=== PATIENT | female | born 1960 | race Caucasian/White ===

== ENCOUNTER 2023-02-09 20:48 | Emergency (ER) | payer BC, SELFPAY ==
[2023-02-09 20:50] VITALS: BP 141/83; PULSE 96; RESP 18; TEMP 35.8; O2SAT 99
[2023-02-09 21:10] LABS: Absolute Neutrophil Count 5.3 X10^3/uL (2.0-7.7); Basophil# 0.05 X10^3/uL; Basophil% 0.5 % (0-1); Eosinophil# 0.21 X10^3/uL; Eosinophils% 2.1 % (0-5); Hematocrit 40.4 % (37-47); Hemoglobin 13.1 g/dL (12.0-15.0); Mean Corp Hgb Conc 32.4 g/dL (32-36); Mean Corpuscular Hgb 29.6 pg (27.0-32.0); Mean Corpuscular Volume 91.4 fL (81-99); Mean Platelet Vol. 10.5 fl (6.2-12.0); NRBC Flagged by Analyzer 0 % (0-5); Neutrophil # 5.31 X10^3/uL (2.7-7.7); Neutrophil % 53.1 % (47-70); Platelet Count 307 K/mm3 (150-450); RBC Distribution Width CV 13.7 % (11.6-14.6); RBC Distribution Width SD 46.4 fl (35.1-43.9); Red Blood Count 4.42 M/mm3 (4.2-5.4)
[2023-02-09 21:31] LABS: Anion Gap 6 (5-15); BUN 13 mg/dL (7-18); BUN/Creat Ratio 14.1 RATIO (10-20); Calcium,Total 9.1 mg/dL (8.5-10.1); Chloride 101 mmol/L (98-107); Creatinine, Serum 0.92 mg/dL (0.55-1.02); EST Glomerular Filtration Rate 66 mL/min (>60); Est Glom Filt Rate - Afr Amer 79 mL/min (>60); Glucose 122 mg/dL (74-106); Potassium 3.1 mmol/L (3.5-5.1); Sodium Level 137 mmol/L (136-145); Troponin-I HS (w/2H Reflex) 4 pg/mL (3.0-54.0)
--- NOTE | 2023-02-09 21:35 | RAD_ITS ---
EXAM: XR CHEST, 1 VIEW CLINICAL INDICATION: chest pain TECHNIQUE: Frontal view of the chest. COMPARISON: No relevant prior studies available. FINDINGS: LUNGS AND PLEURAL SPACES: Unremarkable. No consolidation or edema. No pneumothorax. No effusion. HEART: Unremarkable. Cardiac silhouette not enlarged. MEDIASTINUM: Central airways and mediastinal contour are unremarkable. BONES/JOINTS: Unremarkable. SOFT TISSUES: Unremarkable. RAD/Chest 1 View (Portable) IMPRESSION: No radiographic evidence of acute cardiopulmonary disease. Electronically Signed: Minesh Foster MD at 21:56 EDT ,
[2023-02-09] MEDS: Aspirin 81 MG TAB.CHEW 324 MG PO (21:46)
[2023-02-09 22:09] LABS: D-Dimer Quantitative (DVT/PE) 0.35 FEU/ug/m (0.27-0.49)
[2023-02-09 23:08] LABS: Reflex Troponin-HS? (from REC) Y
[2023-02-09 23:15] VITALS: BP 129/80; PULSE 83; RESP 15; O2SAT 98
[2023-02-09] MEDS: Ondansetron 4 MG/2 ML Vial IV (23:28)
[2023-02-09] MEDS: 0.9% Normal Saline 1,000 ML 999 ML IV (23:29)
[2023-02-09 23:40] LABS: Troponin-I HS 4 pg/mL (3.0-54.0)
--- NOTE | 2023-02-10 00:12 | EDS_ITS ---
HPI History of Present Illness Chief Complaint: Chest Pain Informant: patient Narrative Narrative: Patient presents with chest heaviness, mild nausea, radiation toward the left shoulder, nonspecific dizziness and some mild shortness of breath. She states she did have a history of [place] and had a stent placed about 4 or 5 years ago. She had been doing well. In August of this year she got COVID. About 2 weeks after that she started getting the symptoms. She has had them multiple times. She has seen her screening unit registered nurse multiple times she is seeing other specialist. She has been to the emergency department she tells me 16 times for this. Every single time she is evaluated including with CT scans of the chest echo etc. everything is negative. She states she has had every test there is. Nobody can sort out why she is having the symptoms. These are the same as her normal. She is on her meds including beta-omar, aspirin, pantoprazole, lisinopril. She is no longer on Plavix but had been on that for a while after stents. [facility] Medical History HTN (hypertension) Past heart attack Home Medications ondansetron 4 mg disintegrating tablet 4 mg PO Q8H PRN PRN Nausea #10 tabs 02/10/23 [Rx Last Taken Unknown] Allergy/AdvReac Type Severity Reaction Status Date / Time codeine Allergy Intermediate nausea Verified 02/09/23 20:49 Surgical History Stented coronary artery Social History Smoking Status: Current every day smoker tobacco type: cigarettes ROS ROS ED ROS Narrative A complete review of systems was performed and is negative except as documented in the history of present illness. Some specific details below. Constitutional: No recent fevers or chills. EYE: No discharge, visual complaints, or pain. ENT: No difficulty swallowing. No swelling. No pain. No reflux symptoms. She does have a history of reflux but it sounds like she is on meds for this CV: See history of present illness. Respiratory: See history of present illness. GI: No abdominal pain. No nausea vomiting diarrhea. No blood in stool. : No frequency dysuria or hematuria. Musculoskeletal: No recent trauma. No pains. No swelling. Skin: No rash. Nondiaphoretic. Neuro: No weakness or numbness. Endocrine: No polyuria or polydipsia. EXAM Physical Exam Narrative Exam Narrative: CONSTITUTIONAL: Patient is nontoxic in appearance. The patient looks comfortable. Work of breathing looks normal. HEENT: No notable trauma. Mucous membranes moist. No sinus tenderness. No indication of pain with swallowing. EYES: No conjunctival injection. No proptosis. NECK:No JVD. No stridor. CARDIOVASCULAR: Regular rate. Regular rhythm. No notable murmur. No JVD. No chest wall tenderness. Pulses are equal x4. RESPIRATORY: No respiratory distress. Breathing is unlabored. No wheezes. No rhonchi. No rales. No pain with a deep breath. No chest wall tenderness. Saturations are normal at 99% on room air showing no hypoxia. GASTROINTESTINAL: Not distended. Bowel sounds are normal. No tenderness. No guarding. No rebound. No palpable mass. No bruit is heard. GENITOURINARY: No tenderness over the bladder. No CVA tenderness. MUSCULOSKELETAL: Atraumatic. No peripheral edema. No cord. No tenderness along the deep venous system. No asymmetry. No distended veins. NEUROLOGICAL: Patient is alert and appropriate. No focal deficit noted. SKIN: No noted rashes. No diaphoresis. PSYCHIATRIC: Patient is calm. Mood is appropriate. Const Vital Signs: 02/09/23 20:50 02/09/23 21:51 02/09/23 21:51 Temperature 96.5 F L Temperature Source Temporal Pulse Rate 96 Respiratory Rate 18 Respiratory Effort Normal Non-Labored Blood Pressure 141/83 H Blood Pressure Mean 102 Pulse Ox 99 Oxygen Delivery Method Room Air Room Air 02/09/23 23:15 Temperature Temperature Source Pulse Rate 83 Respiratory Rate 15 Respiratory Effort Blood Pressure 129/80 H Blood Pressure Mean 96 Pulse Ox 98 Oxygen Delivery Method Room Air MDM MDM MDM Narrative Medical decision making narrative: Patient CBC is normal. Patient's electrolytes are normal other than mildly low potassium at 3.1. She states she has had this before. She supposed to be on potassium pills but they are too big for her to take so she does not take them. Glucose is mildly up at 122. I do not think either 1 of these abnormalities are the cause of her symptoms. Patient's first troponin is negative and quite low at 4. Patient's repeat troponin is 4. I independent her potation the patient's single AP chest x-ray shows no acute process and final reading is similar. Patient's had the symptoms quite frequently ever since she had COVID in August. She has had extensive evaluation including by her own screening unit registered nurse. By her own report, she has had 16 prior ER visits for this. She states she has never had any abnormality found. I do not think this requires admission at this time. I did encourage her to follow-up with her screening unit registered nurse. Lab Data Attestation: I reviewed the patient's lab results. Labs: Laboratory Results - last 24 hr 02/09/23 02/09/23 21:00 23:15 WBC 10.0 RBC 4.42 Hgb 13.1 Hct 40.4 MCV 91.4 MCH 29.6 MCHC 32.4 RDW Std Deviation 46.4 H RDW Coeff of Liv 13.7 Plt Count 307 MPV 10.5 Immature Gran % (Auto) 0.300 Neut % (Auto) 53.1 Lymph % (Auto) 37.0 [place] % (Auto) 7.0 Eos % (Auto) 2.1 Baso % (Auto) 0.5 Absolute Neuts (auto) 5.3 Absolute Lymphs (auto) 3.70 Nucleated RBC % 0 D-Dimer Quant (PE/DVT) 0.35 Sodium 137 Potassium 3.1 L Chloride 101 Carbon Dioxide 30.0 Anion Gap 6 BUN 13 Creatinine 0.92 Est GFR (MDRD) Af Amer 79 Est GFR (MDRD) Non-Af 66 BUN/Creatinine Ratio 14.1 Glucose 122 H Calcium 9.1 Troponin I High Sens 4 4 Radiography Diagnostic Testing: Clinical Impression(s) from Imaging Studies Chest X-Ray 02/09/23 21:35 IMPRESSION: No radiographic evidence of acute cardiopulmonary disease. Electronically Signed: Minesh Foster MD at 21:56 EDT , EKG Initial EKG: Comments: My independent interpretation the patient's EKG shows a normal sinus rhythm. Overall rate of 93. Mildly low voltage. But no acute ST elevation or depression and this was done while she had symptoms. No ectopy. Mild baseline variation in spots. CT interval, QRS duration and QTc is normal. Follow-up EKG: Comments: I have interpretation of her repeat EKG shows a normal sinus rhythm with occasional PVCs. This repeat was done as I had no prior to compare to on the first 1. Other than PVCs there is no notable interval change. No sign of acute ST elevation or depression. There could be mild lead placement variation. CT interval, QRS duration and QTc are quite similar to original. Discharge Plan Triage Chief Complaint: Chest Pain ED Provider: Matheus Contreras Dx/Rx/DC Orders Clinical Impression: [id number] condition, Chest pain Instructions: ED Chest Pain, Uncertain Cause Prescriptions: New ondansetron [ondansetron] 4 mg tablet,disintegrating 4 mg PO Q8H PRN PRN (Reason: Nausea) Qty: 10 0RF Primary Care Provider: DB MAHONEY Referrals: DB MAHONEY [Other] Activity Restrictions/Additional Instructions: Follow-up with Dr. Espinal at [facility] this coming week Disposition Disposition: Home, Self Care
[2023-02-10 01:09] VITALS: BP 112/69
== END 2023-02-10 01:09 | disposition home or self-care (01) ==
PROVIDERS: Emergency Provider Emergency Medicine; Visit Provider Emergency Medicine
DX: R07.9 Chest pain, unspecified (principal); U09.9 Post COVID-19 condition, unspecified; I10 Essential (primary) hypertension; R06.02 Shortness of breath; R11.0 Nausea; F17.210 Nicotine dependence, cigarettes, uncomplicated; I25.2 Old myocardial infarction
CPT/HCPCS: 71045; 80048; 84484; 85025; 85379; 93005; 96361; 96374; 99285; J7030; A4216; J2405